=== PATIENT | female | born 1945 | race Caucasian/White ===

== ENCOUNTER 2018-10-22 10:41 | Inpatient (IN) | payer MEDICARE | END 2018-10-24 17:00 | disposition home or self-care (01) | LOC: EDH 10:41 → EDHIP 12:25 → 3BH 13:54 | DX: J96.01 Acute respiratory failure with hypoxia (principal); J18.1 Lobar pneumonia, unspecified organism; E87.1 Hypo-osmolality and hyponatremia; N19 Unspecified kidney failure; E11.69 Type 2 diabetes mellitus with other specified complication; E11.51 Type 2 diabetes mellitus with diabetic peripheral angiopathy without gangrene ==